=== PATIENT | female | born 1945 | race Caucasian/White ===

== ENCOUNTER 2018-02-04 20:22 | Inpatient (IN) | payer MEDICARE, OTHER ==
[~2018-02-04] VITALS: Ht 162.6 cm; Wt 85.8 kg
[~2018-02-04 20:22] MED LIST: AMLO5 PO; ASPI81CH; Aspir 8181 MG PO; Coq-10100 MG PO; ENOX40I SC; FISH OIL OMEGA1 EAC2 PO; GLUCOSAMINE CH1 EAC3 PO; Hair, Skin & N1 EACH PO; LOSA50 PO; Lovastatin20 MG PO; Metoprolol-Hct1 EAC1 PO; OTC SLEEP AID PO; OXYACE5T PO; PRED5 PO; ZINC15 PO
[2018-02-04 20:51] LABS: BASOPHILS ABSOLUTE AUTO 0.04 K/mm3 (0.00-0.23); BASOPHILS PERCENT AUTO 1 % (0-2); EOSINOPHILS ABSOLUTE AUTO 0.12 K/mm3 (0.00-0.68); EOSINOPHILS PERCENT AUTO 2 % (0-6); Hematocrit 35.6 % (33.0-51.0); Hemoglobin 12.3 g/dL (11.5-16.0); IMMATURE GRAN ABSOLUTE AUTO 0.03 K/mm3 (0.00-0.10); IMMATURE GRAN PERCENT AUTO 1 % (0-1); LYMPHOCYTES PERCENT AUTO 38 % (21-46); MONOCYTES PERCENT AUTO 10 % (4-13); Mean Corpuscular HGB 30.1 pg (26.0-34.0); Mean Corpuscular HGB Conc 34.6 g/dL (31.5-36.5); Mean Corpuscular Volume 87 fL (80-100); NEUTROPHILS ABSOLUTE AUTO 2.56 K/mm3 (1.96-9.15); NEUTROPHILS PERCENT AUTO 49 % (41-73); RDW Coefficient Variation 13.1 % (11.7-14.2); RDW Standard Deviation 41.1 fL (35.1-46.3); Red Blood Cell Count 4.09 M/mm3 (3.80-5.20); White Blood Cell Count 5.25 K/mm3 (4.00-11.30)
[2018-02-04 20:54] LABS: Platelet Count 0 K/mm3 (150-400)
[2018-02-04 21:18] LABS: Alanine Aminotransfer (ALT/SGP 56 U/L (12-78); Albumin, Blood 3.8 g/dL (3.4-5.0); Albumin/Globulin Ratio 1.1 (0.8-1.8); Alk Phos 71 U/L (50-136); Anion Gap 9 mmol/L (6-16); Aspartate Aminotrans (AST/SGOT 33 U/L (12-37); Bilirubin, Total 0.5 mg/dL (0.1-1.0); Blood Urea Nitrogen 16 mg/dL (8-24); Bun/Creatinine Ratio 19.4 (12.0-20.0); CO2, Blood 24 mmol/L (21-32); Calcium, Blood 8.8 mg/dL (8.5-10.1); Chloride, Blood 108 mmol/L (98-108); Creatinine, Blood 0.83 mg/dL (0.40-1.00); Globulin, Blood 3.6 g/dL (2.2-4.0); Glomerular Filtration Rate >60 (60-); Glucose, Blood 137 mg/dL (70-99); Potassium, Blood 4.1 mmol/L (3.5-5.5); Sodium, Blood 141 mmol/L (136-145); Total Protein, Blood 7.4 g/dL (6.4-8.2)
[2018-02-04 22:26] LABS: International Normalized Ratio 1.02; Prothrombin Time Results 10.6 Sec (9.7-11.5)
[2018-02-04 23:06] LABS: Bilirubin, Urine Neg (Neg); Blood, Urine 5+ (Neg); Glucose Qualitative, Urine Neg (Neg); Ketones, Urine Neg (Neg); Leukocyte Esterase, Urine Neg (Neg); Nitrite, Urine Neg (Neg); Protein, Urine Neg (Neg); Source, Urine Clean Catch; Urobilinogen, Urine NORM (Normal)
[2018-02-04 23:07] LABS: Appearance, Urine Clear (Clear); Color, Urine Yellow (P-Yellow)
[2018-02-04 23:12] LABS: Amorphous Light (0-Heavy); Bacteria Not Seen /hpf; Squamous Epithelial Cells Not Seen /hpf (Few); White Blood Cells, Urine Not Seen /hpf (0-5)
[2018-02-05 06:55] LABS: BASOPHILS ABSOLUTE AUTO 0.02 K/mm3 (0.00-0.23); BASOPHILS PERCENT AUTO 0 % (0-2); EOSINOPHILS PERCENT AUTO 0 % (0-6); Hematocrit 35.9 % (33.0-51.0); Hemoglobin 12.5 g/dL (11.5-16.0); IMMATURE GRAN ABSOLUTE AUTO 0.07 K/mm3 (0.00-0.10); IMMATURE GRAN PERCENT AUTO 1 % (0-1); LYMPHOCYTES ABSOLUTE AUTO 1.18 K/mm3 (0.84-5.20); LYMPHOCYTES PERCENT AUTO 22 % (21-46); MONOCYTES PERCENT AUTO 2 % (4-13); Mean Corpuscular HGB Conc 34.8 g/dL (31.5-36.5); Mean Corpuscular Volume 86 fL (80-100); NEUTROPHILS ABSOLUTE AUTO 4.05 K/mm3 (1.96-9.15); NEUTROPHILS PERCENT AUTO 75 % (41-73); RDW Coefficient Variation 12.8 % (11.7-14.2); Red Blood Cell Count 4.16 M/mm3 (3.80-5.20); White Blood Cell Count 5.42 K/mm3 (4.00-11.30)
[2018-02-05 07:03] LABS: Anion Gap 9 mmol/L (6-16); Blood Urea Nitrogen 16 mg/dL (8-24); CO2, Blood 21 mmol/L (21-32); Calcium, Blood 8.8 mg/dL (8.5-10.1); Chloride, Blood 109 mmol/L (98-108); Creatinine, Blood 0.67 mg/dL (0.40-1.00); Glomerular Filtration Rate >60 (60-); Glucose, Blood 226 mg/dL (70-99); Potassium, Blood 3.9 mmol/L (3.5-5.5); Sodium, Blood 139 mmol/L (136-145)
[2018-02-05 07:51] LABS: Platelet Count 1 K/mm3 (150-400)
[2018-02-06 05:16] LABS: BASOPHILS ABSOLUTE AUTO 0.01 K/mm3 (0.00-0.23); BASOPHILS PERCENT AUTO 0 % (0-2); EOSINOPHILS PERCENT AUTO 0 % (0-6); Hematocrit 33.5 % (33.0-51.0); Hemoglobin 11.7 g/dL (11.5-16.0); IMMATURE GRAN ABSOLUTE AUTO 0.11 K/mm3 (0.00-0.10); IMMATURE GRAN PERCENT AUTO 1 % (0-1); LYMPHOCYTES ABSOLUTE AUTO 1.78 K/mm3 (0.84-5.20); LYMPHOCYTES PERCENT AUTO 11 % (21-46); MONOCYTES ABSOLUTE AUTO 0.73 K/mm3 (0.16-1.47); MONOCYTES PERCENT AUTO 5 % (4-13); Mean Corpuscular HGB 29.9 pg (26.0-34.0); Mean Corpuscular HGB Conc 34.9 g/dL (31.5-36.5); Mean Corpuscular Volume 86 fL (80-100); NEUTROPHILS ABSOLUTE AUTO 13.05 K/mm3 (1.96-9.15); NEUTROPHILS PERCENT AUTO 83 % (41-73); RDW Coefficient Variation 13.2 % (11.7-14.2); RDW Standard Deviation 40.6 fL (35.1-46.3); Red Blood Cell Count 3.91 M/mm3 (3.80-5.20); White Blood Cell Count 15.68 K/mm3 (4.00-11.30)
[2018-02-06 05:34] LABS: Platelet Count 1 K/mm3 (150-400)
[2018-02-06 16:07] LABS: Free Thyroxine 1.02 ng/dL (0.70-1.60); Thyroid Stimulating Hormone 1.41 uIU/mL (0.360-4.800)
[2018-02-07 05:21] LABS: BASOPHILS ABSOLUTE AUTO 0.01 K/mm3 (0.00-0.23); BASOPHILS PERCENT AUTO 0 % (0-2); EOSINOPHILS PERCENT AUTO 0 % (0-6); Hematocrit 33.6 % (33.0-51.0); Hemoglobin 11.6 g/dL (11.5-16.0); IMMATURE GRAN ABSOLUTE AUTO 0.15 K/mm3 (0.00-0.10); IMMATURE GRAN PERCENT AUTO 1 % (0-1); LYMPHOCYTES PERCENT AUTO 14 % (21-46); MONOCYTES ABSOLUTE AUTO 0.51 K/mm3 (0.16-1.47); MONOCYTES PERCENT AUTO 4 % (4-13); Mean Corpuscular HGB 29.9 pg (26.0-34.0); Mean Corpuscular HGB Conc 34.5 g/dL (31.5-36.5); Mean Corpuscular Volume 87 fL (80-100); NEUTROPHILS ABSOLUTE AUTO 11.75 K/mm3 (1.96-9.15); NEUTROPHILS PERCENT AUTO 82 % (41-73); RDW Coefficient Variation 13.2 % (11.7-14.2); RDW Standard Deviation 41.1 fL (35.1-46.3); Red Blood Cell Count 3.88 M/mm3 (3.80-5.20); White Blood Cell Count 14.42 K/mm3 (4.00-11.30)
[2018-02-07 05:48] LABS: Mean Platelet Volume 15.1 fL (9.1-12.4)
[2018-02-07 05:50] LABS: Platelet Count 1 K/mm3 (150-400)
[2018-02-07 06:39] LABS: HCV Non Reactive (NR)
[2018-02-08 08:14] LABS: BASOPHILS ABSOLUTE AUTO 0.01 K/mm3 (0.00-0.23); BASOPHILS PERCENT AUTO 0 % (0-2); EOSINOPHILS PERCENT AUTO 0 % (0-6); Hematocrit 36.2 % (33.0-51.0); Hemoglobin 12.6 g/dL (11.5-16.0); IMMATURE GRAN PERCENT AUTO 2 % (0-1); LYMPHOCYTES ABSOLUTE AUTO 1.43 K/mm3 (0.84-5.20); LYMPHOCYTES PERCENT AUTO 13 % (21-46); MONOCYTES PERCENT AUTO 5 % (4-13); Mean Corpuscular HGB 30.4 pg (26.0-34.0); Mean Corpuscular HGB Conc 34.8 g/dL (31.5-36.5); Mean Corpuscular Volume 87 fL (80-100); NEUTROPHILS ABSOLUTE AUTO 8.97 K/mm3 (1.96-9.15); NEUTROPHILS PERCENT AUTO 80 % (41-73); RDW Standard Deviation 40.8 fL (35.1-46.3); Red Blood Cell Count 4.15 M/mm3 (3.80-5.20); White Blood Cell Count 11.21 K/mm3 (4.00-11.30)
[2018-02-08 08:24] LABS: Platelet Count 6 K/mm3 (150-400)
[2018-02-08] MEDS ORDERED: HYDCHL25 PO (10:24)
[2018-02-08] MEDS ORDERED: PRED20 PO (10:25)
== END 2018-02-08 11:55 | disposition home or self-care (01) | DRG 813 ==
LOC: ER 20:22 → MEDS 20:23
PROVIDERS: Emergency Medicine; Hospitalist; Internal Medicine; Internal Medicine Hematology & Oncology
DX: D69.3 Immune thrombocytopenic purpura (principal); E78.5 Hyperlipidemia, unspecified; G43.909 Migraine, unspecified, not intractable, without status migrainosus; I10 Essential (primary) hypertension; M19.90 Unspecified osteoarthritis, unspecified site; R04.0 Epistaxis; Z79.82 Long term (current) use of aspirin; Z85.828 Personal history of other malignant neoplasm of skin; Z53.1 Procedure and treatment not carried out because of patient's decision for reasons of belief and group pressure; Z79.899 Other long term (current) drug therapy; Z96.651 Presence of right artificial knee joint
CPT/HCPCS: 36415; 80048; 80053; 81001; 82947; 83036; 84439; 84443; 85025; 85610; 85730; 86803; 87340; 96365; 96413; 96415; 99285; J0360; J1100; J1200; J2405; J2930; J7030; J7040; J9310

== ENCOUNTER → 2018-03-18 | Outpatient (CLI) | payer MEDICARE, OTHER ==
[~2018-03-18] MED LIST changes: +HYDCHL25 PO; +PRED20 PO
[2018-03-18 17:16] LABS: Alanine Aminotransfer (ALT/SGP 42 U/L (12-78); Albumin, Blood 3.3 g/dL (3.4-5.0); Albumin/Globulin Ratio 1.1 (0.8-1.8); Alk Phos 57 U/L (50-136); Anion Gap 11 mmol/L (6-16); Aspartate Aminotrans (AST/SGOT 42 U/L (12-37); Bilirubin, Total 0.8 mg/dL (0.1-1.0); Blood Urea Nitrogen 15 mg/dL (8-24); Bun/Creatinine Ratio 20.9 (12.0-20.0); CO2, Blood 24 mmol/L (21-32); Calcium, Blood 9.2 mg/dL (8.5-10.1); Chloride, Blood 96 mmol/L (98-108); Creatinine, Blood 0.72 mg/dL (0.40-1.00); Glomerular Filtration Rate >60 (60-); Glucose, Blood 201 mg/dL (70-99); Potassium, Blood 4.2 mmol/L (3.5-5.5); Sodium, Blood 131 mmol/L (136-145); Total Protein, Blood 6.3 g/dL (6.4-8.2)
== END | disposition home or self-care (01) ==
LOC: LAB SHORT 16:24 → LAB 16:24
PROVIDERS: Internal Medicine Hematology & Oncology
DX: G60.9 Hereditary and idiopathic neuropathy, unspecified (principal); D69.3 Immune thrombocytopenic purpura; R06.02 Shortness of breath
CPT/HCPCS: 80053; 82607; 82728; 82746; 83540; 83550

== ENCOUNTER → 2018-03-28 | Outpatient (CLI) | payer MEDICARE, OTHER ==
[2018-03-28 10:38] LABS: Adenovirus F 40/41 Not Detected (NOT DETECT); Astrovirus Not Detected (NOT DETECT); Campylobacter Sp Not Detected (NOT DETECT); Cryptosporidium Not Detected (NOT DETECT); Cyclospora Cayetanensis Not Detected (NOT DETECT); E. Coli O157 Not Detected (NOT DETECT); Entamoeba Histolytica Not Detected (NOT DETECT); Enteroaggregative E. coli-EAEC Not Detected (NOT DETECT); Enteropathogenic E. coli-EPEC Not Detected (NOT DETECT); Enterotoxigenic E. coli-ETEC Not Detected (NOT DETECT); Giardia Lamblia Not Detected (NOT DETECT); Norovirus GI/GII Not Detected (NOT DETECT); Plesiomonas Shigelloides Not Detected (NOT DETECT); Rotavirus A Not Detected (NOT DETECT); Salmonella Sp Not Detected (NOT DETECT); Sapovirus Not Detected (NOT DETECT); Shiga Toxin-prod E. coli-STEC Not Detected (NOT DETECT); Shigella/Enteroin E. coli-EIEC Not Detected (NOT DETECT); Vibrio Cholerae Not Detected (NOT DETECT); Vibrio Sp Not Detected (NOT DETECT); Yersinia Enterocolitica Not Detected (NOT DETECT)
== END | disposition home or self-care (01) ==
LOC: LAB 07:30 → LAB SHORT 07:30
PROVIDERS: Internal Medicine Hematology & Oncology
DX: D69.3 Immune thrombocytopenic purpura (principal); R19.7 Diarrhea, unspecified
CPT/HCPCS: 87507

== ENCOUNTER → 2018-05-28 | Outpatient (CLI) | payer MEDICARE, OTHER | END | disposition home or self-care (01) | LOC: PLD 08:14 → LAB SHORT 08:14 | DX: L57.0 Actinic keratosis (principal) | CPT/HCPCS: 88305 ==

== ENCOUNTER 2020-08-10 10:53 | Day surgery (SDC) | payer MEDICARE, OTHER ==
[~2020-08-10] VITALS: Ht 167.6 cm; Wt 88.0 kg
[~2020-08-10 10:53] MED LIST changes: +DONE10 PO; +MELO7.5 PO; +METO25 PO; +SLEEP AID PO
--- NOTE | 2020-08-10 11:17 | NUR ---
Ambulatory in Day Surgery History, Chart, Medications and Allergies reviewed before start of procedure.Lungs clear T/O to Auscultation. Patient confirms NPO status and agrees with scheduled surgery.
--- NOTE | 2020-08-10 11:33 | NUR ---
TOOK OVER PATIENT CARE AFTER REPORT WAS RECEIVED.
--- NOTE | 2020-08-10 12:08 | NUR ---
TOOK C ARE BACK OVER NO CHANGE.
--- NOTE | 2020-08-10 13:12 | NUR ---
1300 UP TO BATHROOM AT THIS TIME
--- NOTE | 2020-08-10 23:46 | NUR ---
FIRST AMBULATION, SYNCOPAL EPISODE PT AMBULATED FOR FIRST TIME AFTER SURGERY AROUND 2244, USING FWW AND GAIT BELT, UP TO BATHROOM. WHEN ATTEMPTING TO GET UP FROM USING TOILET PT HAD SYNCOPAL EPISODE. THIS RN AND GLYCERIN SUPERVISOR PRESENT. ASSISTED PT TO SIT BACK DOWN ON TOILET. CALLED SURGICAL FLOOR STAFF TO ASSIST. AFTER A FEW SECONDS PT WAS ABLE TO RESPOND TO NAME, MAKE EYE CONTACT, AND VERBALLY COMMUNICATE. PT ASSISTED BACK TO BED. BP LOWER THAN BEFORE AMBULATING; SEE VS HX. PT DENYING DIZZINESS OR LIGHTHEADEDNESS SINCE BACK IN BED. WCTM.
[2020-08-11 04:12] LABS: BASOPHILS ABSOLUTE AUTO 0.01 K/mm3 (0.00-0.23); BASOPHILS PERCENT AUTO 0 % (0-2); EOSINOPHILS PERCENT AUTO 0 % (0-6); Hematocrit 29.5 % (33.0-51.0); Hemoglobin 9.9 g/dL (11.5-16.0); IMMATURE GRAN ABSOLUTE AUTO 0.08 K/mm3 (0.00-0.10); IMMATURE GRAN PERCENT AUTO 1 % (0-1); LYMPHOCYTES ABSOLUTE AUTO 1.69 K/mm3 (0.84-5.20); LYMPHOCYTES PERCENT AUTO 13 % (21-46); MONOCYTES ABSOLUTE AUTO 0.42 K/mm3 (0.16-1.47); MONOCYTES PERCENT AUTO 3 % (4-13); Mean Corpuscular HGB 32.1 pg (26.0-34.0); Mean Corpuscular HGB Conc 33.6 g/dL (31.5-36.5); Mean Corpuscular Volume 96 fL (80-100); Mean Platelet Volume 11.2 fL (9.1-12.4); NEUTROPHILS ABSOLUTE AUTO 10.43 K/mm3 (1.96-9.15); NEUTROPHILS PERCENT AUTO 83 % (41-73); Platelet Count 153 K/mm3 (150-400); RDW Coefficient Variation 12.5 % (11.7-14.2); RDW Standard Deviation 43.3 fL (35.1-46.3); Red Blood Cell Count 3.08 M/mm3 (3.80-5.20); White Blood Cell Count 12.63 K/mm3 (4.00-11.30)
[2020-08-11 04:27] LABS: Anion Gap 8 mmol/L (6-16); Blood Urea Nitrogen 27 mg/dL (8-24); Bun/Creatinine Ratio 33.3 (12.0-20.0); CO2, Blood 24 mmol/L (21-32); Calcium, Blood 7.9 mg/dL (8.5-10.1); Chloride, Blood 104 mmol/L (98-108); Creatinine, Blood 0.81 mg/dL (0.40-1.00); Glomerular Filtration Rate >60 (60-); Glucose, Blood 173 mg/dL (70-99); Magnesium, Blood 2.1 mg/dL (1.6-2.4); Potassium, Blood 5.2 mmol/L (3.5-5.5); Sodium, Blood 136 mmol/L (136-145)
--- NOTE | 2020-08-11 06:38 | NUR ---
SHIFT SUMMARY PT A/O X4. 1X ASSIST TO BATHROOM WITH FWW AND GAIT BELT. PT HAD SYNCOPAL EPISODE DURING HER FIRST TIME UP TO BATHROOM. SEE PREVIOUS NOTE. PT ALSO UNABLE TO VOID AND WAS STRAGHT CATH'D AT 0545 FOR 780ML'S. PAIN MANAGED WITH TYLENOL AND TORADOL PER ORDERS. POLAR PACK IN PLACE DURING THE NIGHT. TOLERATING PO INTAKE.
--- NOTE | 2020-08-11 08:49 | NUR ---
DR PAVON HERE THIS AM AND PLACED NEW DRESSING, DISCUSSED PT'S STATUS AND EVENTS LAST NIGHT/EARLY THIS AM PER HS RN.
--- NOTE | 2020-08-11 09:46 | NUR ---
PT ORTHOSTATIC VS WNL. PT DID NOT BECOME SYMPTOMATIC. PT ATTEMPTED TO VOID WITH NO SUCCESS AT THIS TIME. PT TO WORK WITH THERAPY, THEN WILL RETAKE VS AND GIVE MEDICATIONS IF VS REMAIN STABLE AND PT REMAINS ASSYMPTOMATIC. DISCUSSED PT'S EVENTS LAST NIGHT WITH THERAPY. FAMILY HERE.
[2020-08-11] MEDS ORDERED: ASPI81CH PO (15:11)
[2020-08-11] MEDS ORDERED: DOCU100 PO (15:12)
[2020-08-11] MEDS ORDERED: OXYC5 PO (15:13)
[2020-08-11] MEDS ORDERED: PROM25 PO (15:14)
--- NOTE | 2020-08-11 15:45 | NUR ---
DISCHARGE: PT EATING AND DRINKING. PT BEEN VOIDING MUCH BETTER THIS AFTERNOON. PT REPORTS PAIN DOING MUCH BETTER. PT PASSING GAS. PT BEEN CLEARED BY OT/PT TO GO HOME. PT/FAMILY REPORTS UNDERSTANDING OF DISCHARGE INSTRUCTIONS INCLUDING MEDICATIONS AND ICE MACHINE. PT REPORTS HAVING MEDICATIONS, WALKER AT HOME. PT SENT WITH BELONGINGS, ICE MACHINE, PAPERWORK. FAMILY GIVING PT RIDE HOME. IV BEEN OUT WNL, NO OTHER IV'S IN PLACE.
== END 2020-08-11 15:54 | disposition home or self-care (01) ==
LOC: ORSCMMR 10:53 → ORD 15:15 → ORSCMMR 15:15 → SURS 17:55 → ORSCMMR 08-11 15:54
PROVIDERS: Orthopaedic Surgery
PROC: 0SRB0JA Replacement of Left Hip Joint with Synthetic Substitute, Uncemented, Open Approach (ICD-10-PCS; principal; 2020-08-10 15:15)
PROC: 8E0YXBZ Computer Assisted Procedure of Lower Extremity (ICD-10-PCS; principal; 2020-08-10 15:15)
DX: M16.12 Unilateral primary osteoarthritis, left hip (principal); I10 Essential (primary) hypertension; E78.5 Hyperlipidemia, unspecified; Z79.899 Other long term (current) drug therapy
CPT/HCPCS: 36415; 72170; 80048; 83735; 85025; 88300; 97110; 97116-CQ; 97161; 97165; 97535; A9270; A9270-GY; C1713; C1776; J0171; J0690; J0735; J1100; J1885; J2250; J2370; J2405; J2704; J2795; J3010; J3370; J7120

== ENCOUNTER 2020-11-04 11:20 | Day surgery (SDC) | payer MEDICARE, OTHER ==
[~2020-11-04] VITALS: Ht 162.6 cm; Wt 91.2 kg
[~2020-11-04 11:20] MED LIST changes: +ASPI81CH PO; +DOCU100 PO; +OXYC5 PO; +PROM25 PO
[2020-11-04 18:12] LABS: BODY FLUID RBC 0.308 M/mm3 (0-0); RBC Count, Synovial Fluid 308000 /mm3 (0-0); WBC Count, Synovial Fluid 842 /mm3 (0-180)
[2020-11-04 18:14] LABS: BODY FLUID RBC 0.645 M/mm3 (0-0); RBC Count, Synovial Fluid 645000 /mm3 (0-0); WBC Count, Synovial Fluid 1541 /mm3 (0-180)
[2020-11-04 18:52] LABS: Color, Synovial Fluid Red (None-P Yel); Lymphs, Synovial Fluid 69 % (0-15); Monocytes/Macrophages, Synovia 7 % (0-65); Neutrophils, Synovial Fluid 24 % (0-24)
[2020-11-04 18:53] LABS: Appearance, Synovial Fluid Bloody (Clear)
[2020-11-04 18:54] LABS: Lymphs, Synovial Fluid 76 % (0-15); Monocytes/Macrophages, Synovia 9 % (0-65); Neutrophils, Synovial Fluid 15 % (0-24)
[2020-11-04 18:55] LABS: Appearance, Synovial Fluid Bloody (Clear); Color, Synovial Fluid Red (None-P Yel)
--- NOTE | 2020-11-04 21:23 | NUR ---
ADMISSION HX AND INITIAL ASSESSMENT DONE UNDER DAY SURGERY SECTION
--- NOTE | 2020-11-05 04:48 | NUR ---
SHIFT SUMMARY POD1 L HIP I&D W/ REVISION, A/O X4, VSS, TOLERATING PO, VOIDING WELL, AMBULATES W/ 1 PERSON SBA, DENIES PAIN, HEMOVAC DRAINING WELL W/ SMALL AMOUNT OF SANGUINEOUS DRAINGAGE, DENIES FLATUS BUT ONLY OUT OF PACU SINCE START OF SHIFT. CALL LIGHT IN REACH, BED IN LOW POSITION, WILL CONTINUE TO MONITOR AND REPORT TO ONCOMING DAY RN.
[2020-11-05 04:50] LABS: BASOPHILS ABSOLUTE AUTO 0.03 K/mm3 (0.00-0.23); BASOPHILS PERCENT AUTO 0 % (0-2); EOSINOPHILS ABSOLUTE AUTO 0.01 K/mm3 (0.00-0.68); EOSINOPHILS PERCENT AUTO 0 % (0-6); Hematocrit 32.2 % (33.0-51.0); Hemoglobin 10.4 g/dL (11.5-16.0); IMMATURE GRAN ABSOLUTE AUTO 0.02 K/mm3 (0.00-0.10); IMMATURE GRAN PERCENT AUTO 0 % (0-1); LYMPHOCYTES ABSOLUTE AUTO 1.87 K/mm3 (0.84-5.20); LYMPHOCYTES PERCENT AUTO 24 % (21-46); MONOCYTES ABSOLUTE AUTO 0.47 K/mm3 (0.16-1.47); MONOCYTES PERCENT AUTO 6 % (4-13); Mean Corpuscular HGB 29.3 pg (26.0-34.0); Mean Corpuscular HGB Conc 32.3 g/dL (31.5-36.5); Mean Corpuscular Volume 91 fL (80-100); Mean Platelet Volume 11.1 fL (9.1-12.4); NEUTROPHILS ABSOLUTE AUTO 5.54 K/mm3 (1.96-9.15); NEUTROPHILS PERCENT AUTO 70 % (41-73); Platelet Count 122 K/mm3 (150-400); RDW Coefficient Variation 13.5 % (11.7-14.2); RDW Standard Deviation 44.9 fL (35.1-46.3); Red Blood Cell Count 3.55 M/mm3 (3.80-5.20); White Blood Cell Count 7.94 K/mm3 (4.00-11.30)
[2020-11-05 05:11] LABS: Anion Gap 6 mmol/L (6-16); Blood Urea Nitrogen 20 mg/dL (8-24); Bun/Creatinine Ratio 27.6 (12.0-20.0); CO2, Blood 26 mmol/L (21-32); Calcium, Blood 8.1 mg/dL (8.5-10.1); Chloride, Blood 107 mmol/L (98-108); Creatinine, Blood 0.72 mg/dL (0.40-1.00); Glomerular Filtration Rate >60 (60-); Glucose, Blood 134 mg/dL (70-99); Magnesium, Blood 2.1 mg/dL (1.6-2.4); Potassium, Blood 4.6 mmol/L (3.5-5.5); Sodium, Blood 139 mmol/L (136-145)
--- NOTE | 2020-11-05 18:41 | NUR ---
SHIFT SUMMARY PT IS POD#1 FROM A L HIP REVISION. PAIN HAS BEEN MANAGED WITH PO PAIN MEDICATION. PICC LINE PLACED TODAY. POSSIBLE HOME TOMORROW. VSS. WILL MONITOR UNTIL REPORT TO ONCOMING RN.
--- NOTE | 2020-11-06 05:35 | NUR ---
SHIFT SUMMARY POD2 L HIP I&D W/ REVISION, A/O X4, VSS, INDEPENDENT IN ROOM BUT STILL USES WALKER FOR SUPPORT/SAFETY, TOLERATING PO, VOIDING WELL, NO BM SINCE SURGERY, PRUNE JUICE GIVEN AT BEDTIME IN ADDITION TO ORDERED STOOL SOFTENERS, PAIN WELL CONTROLLED W/ MINIMAL PAIN MEDICATION USE, HEMOVAC PUTTING OUT SMALL AMOUNT OF SS DRAINAGE T/O SHIFT. PICC LINE FLUSHES WELL AND TO BE LEFT IN PLACE FOR DAILY ABX INFUSIONS IN INFUSION CLINIC AFTER DISCHARGE. CALL LIGHT IN REACH, WILL CONTINUE TO MONITOR AND REPORT TO ONCOMING DAY RN.
[2020-11-06] MEDS ORDERED: Percocet 5-3251 EACH PO (11:28)
[2020-11-06] MEDS ORDERED: Aspir 8181 MG PO (11:59)
[2020-11-06] MEDS ORDERED: CEFTRIAXONE2 G1 IV (12:00)
[2020-11-06] MEDS ORDERED: VANCOMYCIN HCL1 G1 IV (12:00)
--- NOTE | 2020-11-06 13:12 | NUR ---
DISCHARGE PT PROVIDED WITH WRITTEN AND VERBAL DISCHARGE INSTRUCTIONS, SHE REPORTED UNDERSTANDING. PT PROVIDED WITH PRESCRIPTIONS AND EDUCATED TO BRING THEM TO THE [facility] TOMORROW. PT ESCORTED OUT IN W/C, PT REQUESTED TO WAIT FOR HER IN THE LOBBY. VSS AND PAIN MANAGED AT TIME OF DISCHARGE.
== END 2020-11-06 13:00 | disposition home or self-care (01) ==
LOC: ORSCMMR 11:20 → ORD 11:20 → ORSCMMR 11:21 → ORD 14:15 → SURS 19:00 → ORD 11-06 13:00
PROVIDERS: Orthopaedic Surgery
PROC: 0JBM0ZZ Excision of Left Upper Leg Subcutaneous Tissue and Fascia, Open Approach (ICD-10-PCS; principal; 2020-11-04 14:15)
PROC: 0SRB0JZ Replacement of Left Hip Joint with Synthetic Substitute, Open Approach (ICD-10-PCS; principal; 2020-11-04 14:15)
PROC: 0SPB0JZ Removal of Synthetic Substitute from Left Hip Joint, Open Approach (ICD-10-PCS; principal; 2020-11-04 14:15)
DX: T84.84XA Pain due to internal orthopedic prosthetic devices, implants and grafts, initial encounter (principal); L53.8 Other specified erythematous conditions; Z96.642 Presence of left artificial hip joint; I10 Essential (primary) hypertension; Z79.899 Other long term (current) drug therapy; Z20.822 Contact with and (suspected) exposure to COVID-19
CPT/HCPCS: 0241U; 36415; 36569; 72170; 80048; 83735; 85025; 87070; 87071; 87075; 87205; 87801; 88305; 89051; 97110; 97116; 97161; A9270; C1713; C1751; C1776; J0171; J0690; J0696; J0735; J1885; J2250; J2405; J2795; J3010; J3370; J7050; J7120

== ENCOUNTER 2020-11-07 07:11 | Day surgery (SDC) | payer MEDICARE, OTHER ==
[~2020-11-07 07:11] MED LIST changes: +CEFTRIAXONE2 G1 IV; +Percocet 5-3251 EACH PO; +VANCOMYCIN HCL1 G1 IV
[2020-11-07 09:36] LABS: Creatinine, Blood 0.71 mg/dL (0.40-1.00); Vancomycin, Trough 6.7 ug/mL (5.0-10.0)
== END 2020-11-07 23:12 | disposition home or self-care (01) ==
LOC: ATC 07:11
PROVIDERS: Orthopaedic Surgery
DX: T84.84XA Pain due to internal orthopedic prosthetic devices, implants and grafts, initial encounter (principal); T84.89XA Other specified complication of internal orthopedic prosthetic devices, implants and grafts, initial encounter; E78.00 Pure hypercholesterolemia, unspecified; G43.909 Migraine, unspecified, not intractable, without status migrainosus; Z79.2 Long term (current) use of antibiotics; Z79.899 Other long term (current) drug therapy; Z96.642 Presence of left artificial hip joint; Y83.1 Surgical operation with implant of artificial internal device as the cause of abnormal reaction of the patient, or of later complication, without mention of misadventure at the time of the procedure
CPT/HCPCS: 80202; 82565; 96365; 96367; J0696; J3370; J7050

== ENCOUNTER 2020-11-08 00:22 | Day surgery (SDC) | payer MEDICARE, OTHER | END 2020-11-08 15:40 | disposition home or self-care (01) | LOC: ATC 00:22 | DX: T84.84XA Pain due to internal orthopedic prosthetic devices, implants and grafts, initial encounter (principal); T84.89XA Other specified complication of internal orthopedic prosthetic devices, implants and grafts, initial encounter; E78.00 Pure hypercholesterolemia, unspecified; G43.909 Migraine, unspecified, not intractable, without status migrainosus; Z79.2 Long term (current) use of antibiotics; Z79.899 Other long term (current) drug therapy; Z96.642 Presence of left artificial hip joint; Z79.1 Long term (current) use of non-steroidal anti-inflammatories (NSAID); Z79.82 Long term (current) use of aspirin; Y83.1 Surgical operation with implant of artificial internal device as the cause of abnormal reaction of the patient, or of later complication, without mention of misadventure at the time of the procedure | CPT/HCPCS: 96365; 96367; J0696; J3370; J7050 ==

== ENCOUNTER 2020-11-09 00:14 | Day surgery (SDC) | payer MEDICARE, OTHER | END 2020-11-09 16:16 | disposition home or self-care (01) | LOC: ATC 00:14 | DX: T81.89XA Other complications of procedures, not elsewhere classified, initial encounter (principal); L53.9 Erythematous condition, unspecified; G89.18 Other acute postprocedural pain; E78.00 Pure hypercholesterolemia, unspecified; Y83.8 Other surgical procedures as the cause of abnormal reaction of the patient, or of later complication, without mention of misadventure at the time of the procedure; Z96.642 Presence of left artificial hip joint | CPT/HCPCS: 96365; 96366; 96367; J0696; J3370; J7050 ==

== ENCOUNTER 2020-11-10 00:09 | Day surgery (SDC) | payer MEDICARE, OTHER ==
[2020-11-10 14:44] LABS: Creatinine, Blood 0.61 mg/dL (0.40-1.00); Vancomycin, Trough 7.2 ug/mL (5.0-10.0)
== END 2020-11-10 16:26 | disposition home or self-care (01) ==
LOC: ATC 00:09
PROVIDERS: Orthopaedic Surgery
DX: T84.84XA Pain due to internal orthopedic prosthetic devices, implants and grafts, initial encounter (principal); T84.89XA Other specified complication of internal orthopedic prosthetic devices, implants and grafts, initial encounter; E78.00 Pure hypercholesterolemia, unspecified; G43.909 Migraine, unspecified, not intractable, without status migrainosus; Z79.2 Long term (current) use of antibiotics; Z85.828 Personal history of other malignant neoplasm of skin; Z79.899 Other long term (current) drug therapy; Z96.642 Presence of left artificial hip joint; Y83.1 Surgical operation with implant of artificial internal device as the cause of abnormal reaction of the patient, or of later complication, without mention of misadventure at the time of the procedure
CPT/HCPCS: 80202; 82565; 96365; 96366; 96367; J0696; J3370; J7050

== ENCOUNTER 2020-11-11 01:53 | Day surgery (SDC) | payer MEDICARE, OTHER ==
[2020-11-12] MEDS ORDERED: PROBIOTIC1 EA13 PO (14:41)
== END 2020-11-11 17:15 | disposition home or self-care (01) ==
LOC: ATC 01:53
DX: M16.12 Unilateral primary osteoarthritis, left hip (principal); G43.909 Migraine, unspecified, not intractable, without status migrainosus; Z79.899 Other long term (current) drug therapy
CPT/HCPCS: 96365; 96367; J0696; J3370; J7050

== ENCOUNTER 2020-11-12 00:27 | Day surgery (SDC) | payer MEDICARE, OTHER ==
[2020-11-12] MEDS ORDERED: PROBIOTIC1 EA13 PO (14:41)
== END 2020-11-12 15:43 | disposition home or self-care (01) ==
LOC: ATC 00:27
DX: T84.84XA Pain due to internal orthopedic prosthetic devices, implants and grafts, initial encounter (principal); T84.89XA Other specified complication of internal orthopedic prosthetic devices, implants and grafts, initial encounter; E78.00 Pure hypercholesterolemia, unspecified; G43.909 Migraine, unspecified, not intractable, without status migrainosus; Z79.2 Long term (current) use of antibiotics; Z79.1 Long term (current) use of non-steroidal anti-inflammatories (NSAID); Z79.899 Other long term (current) drug therapy; Z96.651 Presence of right artificial knee joint; Z96.642 Presence of left artificial hip joint; Y83.1 Surgical operation with implant of artificial internal device as the cause of abnormal reaction of the patient, or of later complication, without mention of misadventure at the time of the procedure
CPT/HCPCS: 96365; 96367; J0696; J3370; J7050

== ENCOUNTER 2020-11-13 01:24 | Day surgery (SDC) | payer MEDICARE, OTHER ==
[~2020-11-13 01:24] MED LIST changes: +PROBIOTIC1 EA13 PO
[2020-11-13 14:11] LABS: Vancomycin, Trough 8.8 ug/mL (5.0-10.0)
== END 2020-11-13 15:58 | disposition home or self-care (01) ==
LOC: ATC 01:24
PROVIDERS: Orthopaedic Surgery
DX: T84.84XA Pain due to internal orthopedic prosthetic devices, implants and grafts, initial encounter (principal); T84.89XA Other specified complication of internal orthopedic prosthetic devices, implants and grafts, initial encounter; E78.00 Pure hypercholesterolemia, unspecified; G43.909 Migraine, unspecified, not intractable, without status migrainosus; Z79.2 Long term (current) use of antibiotics; Z79.1 Long term (current) use of non-steroidal anti-inflammatories (NSAID); Z79.899 Other long term (current) drug therapy; Z96.642 Presence of left artificial hip joint; Z96.651 Presence of right artificial knee joint; Y83.1 Surgical operation with implant of artificial internal device as the cause of abnormal reaction of the patient, or of later complication, without mention of misadventure at the time of the procedure
CPT/HCPCS: 80202; 82565; 96365; 96366; 96367; J0696; J3370; J7050

== ENCOUNTER 2020-11-14 00:16 | Day surgery (SDC) | payer MEDICARE, OTHER | END 2020-11-14 17:16 | disposition home or self-care (01) | LOC: ATC 00:16 | DX: T84.84XA Pain due to internal orthopedic prosthetic devices, implants and grafts, initial encounter (principal); T84.89XA Other specified complication of internal orthopedic prosthetic devices, implants and grafts, initial encounter; E78.00 Pure hypercholesterolemia, unspecified; G43.909 Migraine, unspecified, not intractable, without status migrainosus; Z79.2 Long term (current) use of antibiotics; Z79.1 Long term (current) use of non-steroidal anti-inflammatories (NSAID); Z79.899 Other long term (current) drug therapy; Z96.642 Presence of left artificial hip joint; Z96.651 Presence of right artificial knee joint; Y83.1 Surgical operation with implant of artificial internal device as the cause of abnormal reaction of the patient, or of later complication, without mention of misadventure at the time of the procedure | CPT/HCPCS: 96365; 96366; 96367; J0696; J3370; J7050 ==

== ENCOUNTER 2020-11-15 00:14 | Day surgery (SDC) | payer MEDICARE, OTHER | END 2020-11-15 15:57 | disposition home or self-care (01) | LOC: ATC 00:14 | DX: M16.12 Unilateral primary osteoarthritis, left hip (principal); Z79.2 Long term (current) use of antibiotics; Z79.82 Long term (current) use of aspirin; Z79.899 Other long term (current) drug therapy | CPT/HCPCS: 96365; 96366; 96367; J0696; J3370; J7050 ==

== ENCOUNTER 2020-11-16 00:33 | Day surgery (SDC) | payer MEDICARE, OTHER ==
[2020-11-16 14:22] LABS: Creatinine, Blood 0.71 mg/dL (0.40-1.00)
== END 2020-11-16 16:00 | disposition home or self-care (01) ==
LOC: ATC 00:33
PROVIDERS: Orthopaedic Surgery
DX: T84.84XA Pain due to internal orthopedic prosthetic devices, implants and grafts, initial encounter (principal); T84.89XA Other specified complication of internal orthopedic prosthetic devices, implants and grafts, initial encounter; E78.00 Pure hypercholesterolemia, unspecified; G43.909 Migraine, unspecified, not intractable, without status migrainosus; Z79.2 Long term (current) use of antibiotics; Z79.82 Long term (current) use of aspirin; Z79.1 Long term (current) use of non-steroidal anti-inflammatories (NSAID); Z79.899 Other long term (current) drug therapy; Z96.642 Presence of left artificial hip joint; Z96.651 Presence of right artificial knee joint; Y83.1 Surgical operation with implant of artificial internal device as the cause of abnormal reaction of the patient, or of later complication, without mention of misadventure at the time of the procedure
CPT/HCPCS: 80202; 82565; 96365; 96367; J0696; J3370; J7050

== ENCOUNTER 2020-11-17 01:27 | Day surgery (SDC) | payer MEDICARE, OTHER | END 2020-11-17 15:36 | LOC: ATC 01:27 | DX: T84.84XA Pain due to internal orthopedic prosthetic devices, implants and grafts, initial encounter (principal); T84.89XA Other specified complication of internal orthopedic prosthetic devices, implants and grafts, initial encounter; E78.00 Pure hypercholesterolemia, unspecified; G43.909 Migraine, unspecified, not intractable, without status migrainosus; Z79.2 Long term (current) use of antibiotics; Z79.82 Long term (current) use of aspirin; Z79.1 Long term (current) use of non-steroidal anti-inflammatories (NSAID); Z79.899 Other long term (current) drug therapy; Z96.642 Presence of left artificial hip joint; Z96.651 Presence of right artificial knee joint; Y83.1 Surgical operation with implant of artificial internal device as the cause of abnormal reaction of the patient, or of later complication, without mention of misadventure at the time of the procedure | CPT/HCPCS: 96365; 96366; 96367; J0696; J3370; J7050 ==

== ENCOUNTER 2020-11-18 00:25 | Day surgery (SDC) | payer MEDICARE, OTHER ==
[2020-11-19] MEDS ORDERED: CIPR750 PO (13:40)
== END 2020-11-18 15:37 | disposition home or self-care (01) ==
LOC: ATC 00:25
DX: M16.12 Unilateral primary osteoarthritis, left hip (principal); E78.00 Pure hypercholesterolemia, unspecified; R00.0 Tachycardia, unspecified; Z96.651 Presence of right artificial knee joint; Z96.642 Presence of left artificial hip joint
CPT/HCPCS: 96365; 96366; J0696; J3370; J7050

== ENCOUNTER 2020-11-19 01:21 | Day surgery (SDC) | payer MEDICARE, OTHER ==
[2020-11-19] MEDS ORDERED: CIPR750 PO (13:40)
[2020-11-19 13:54] LABS: Creatinine, Blood 0.85 mg/dL (0.40-1.00); Vancomycin, Trough 9.2 ug/mL (5.0-10.0)
== END 2020-11-19 15:52 | disposition home or self-care (01) ==
LOC: ATC 01:21
PROVIDERS: Orthopaedic Surgery
DX: T81.89XA Other complications of procedures, not elsewhere classified, initial encounter (principal); L53.8 Other specified erythematous conditions; E78.00 Pure hypercholesterolemia, unspecified; Z96.642 Presence of left artificial hip joint
CPT/HCPCS: 80202; 82565; 96365; 96366; J3370; J7050

== ENCOUNTER 2020-11-20 00:20 | Day surgery (SDC) | payer MEDICARE, OTHER ==
[~2020-11-20 00:20] MED LIST changes: +CIPR750 PO
== END 2020-11-20 15:47 | disposition home or self-care (01) ==
LOC: ATC 00:20
DX: T84.84XA Pain due to internal orthopedic prosthetic devices, implants and grafts, initial encounter (principal); T84.89XA Other specified complication of internal orthopedic prosthetic devices, implants and grafts, initial encounter; Y83.8 Other surgical procedures as the cause of abnormal reaction of the patient, or of later complication, without mention of misadventure at the time of the procedure; Z96.642 Presence of left artificial hip joint; Z96.651 Presence of right artificial knee joint
CPT/HCPCS: 96365; 96366; J0696; J3370; J7050

== ENCOUNTER 2020-11-21 00:15 | Day surgery (SDC) | payer MEDICARE, OTHER | END 2020-11-21 17:07 | disposition home or self-care (01) | LOC: ATC 00:15 | DX: L76.82 Other postprocedural complications of skin and subcutaneous tissue (principal); T84.84XD Pain due to internal orthopedic prosthetic devices, implants and grafts, subsequent encounter; E78.00 Pure hypercholesterolemia, unspecified; G43.909 Migraine, unspecified, not intractable, without status migrainosus; Z66 Do not resuscitate | CPT/HCPCS: 96365; 96366; J3370; J7050 ==

== ENCOUNTER 2020-11-22 00:17 | Day surgery (SDC) | payer MEDICARE, OTHER ==
[2020-11-22 14:10] LABS: Creatinine, Blood 0.69 mg/dL (0.40-1.00)
== END 2020-11-22 16:40 | disposition home or self-care (01) ==
LOC: ATC 00:17
PROVIDERS: Orthopaedic Surgery
DX: M16.12 Unilateral primary osteoarthritis, left hip (principal); Z79.899 Other long term (current) drug therapy
CPT/HCPCS: 80202; 82565; 96365; 96366; J3370; J7050

== ENCOUNTER 2020-11-24 00:15 | Day surgery (SDC) | payer MEDICARE, OTHER | END 2020-11-24 15:25 | disposition home or self-care (01) | LOC: ATC 00:15 | DX: Z47.1 Aftercare following joint replacement surgery (principal); M16.12 Unilateral primary osteoarthritis, left hip; E78.00 Pure hypercholesterolemia, unspecified; Z96.642 Presence of left artificial hip joint; Z96.651 Presence of right artificial knee joint | CPT/HCPCS: 96365; 96366; J3370; J7050 ==

== ENCOUNTER 2020-11-25 00:14 | Day surgery (SDC) | payer MEDICARE, OTHER ==
[2020-11-26] MEDS ORDERED: Vancomycin1 GM/2501 IV (14:09)
== END 2020-11-25 15:45 | disposition home or self-care (01) ==
LOC: ATC 00:14
DX: L76.82 Other postprocedural complications of skin and subcutaneous tissue (principal); L53.8 Other specified erythematous conditions; M25.552 Pain in left hip; E78.00 Pure hypercholesterolemia, unspecified; Z85.828 Personal history of other malignant neoplasm of skin; Y83.8 Other surgical procedures as the cause of abnormal reaction of the patient, or of later complication, without mention of misadventure at the time of the procedure; Z96.642 Presence of left artificial hip joint; Z79.899 Other long term (current) drug therapy
CPT/HCPCS: 96365; 96366; J3370; J7050

== ENCOUNTER 2020-11-26 03:44 | Day surgery (SDC) | payer MEDICARE, OTHER ==
[2020-11-26] MEDS ORDERED: Vancomycin1 GM/2501 IV (14:09)
[2020-11-26 14:10] LABS: Creatinine, Blood 0.68 mg/dL (0.40-1.00); Vancomycin, Trough 9.4 ug/mL (5.0-10.0)
== END 2020-11-26 15:47 | disposition home or self-care (01) ==
LOC: ATC 03:44
PROVIDERS: Orthopaedic Surgery
DX: Z47.1 Aftercare following joint replacement surgery (principal); Z96.642 Presence of left artificial hip joint; Z96.651 Presence of right artificial knee joint; E78.00 Pure hypercholesterolemia, unspecified; M16.12 Unilateral primary osteoarthritis, left hip
CPT/HCPCS: 80202; 82565; 96365; J3370; J7050

== ENCOUNTER 2020-11-27 02:23 | Day surgery (SDC) | payer MEDICARE, OTHER ==
[~2020-11-27 02:23] MED LIST changes: +Vancomycin1 GM/2501 IV
== END 2020-11-27 15:32 | disposition home or self-care (01) ==
LOC: ATC 02:23
DX: Z47.1 Aftercare following joint replacement surgery (principal); Z96.642 Presence of left artificial hip joint; Z96.651 Presence of right artificial knee joint; E78.00 Pure hypercholesterolemia, unspecified
CPT/HCPCS: 96365; 96366; J3370; J7050

== ENCOUNTER 2020-11-28 00:28 | Day surgery (SDC) | payer MEDICARE, OTHER | END 2020-11-28 16:50 | disposition home or self-care (01) | LOC: ATC 00:28 | DX: M96.89 Other intraoperative and postprocedural complications and disorders of the musculoskeletal system (principal); L53.9 Erythematous condition, unspecified; T84.84XA Pain due to internal orthopedic prosthetic devices, implants and grafts, initial encounter; Z96.642 Presence of left artificial hip joint; E78.00 Pure hypercholesterolemia, unspecified; Z85.828 Personal history of other malignant neoplasm of skin; Z96.651 Presence of right artificial knee joint; Z98.49 Cataract extraction status, unspecified eye; Z95.828 Presence of other vascular implants and grafts | CPT/HCPCS: 96365; 96366; J3370; J7050 ==

== ENCOUNTER 2020-11-29 00:06 | Day surgery (SDC) | payer MEDICARE, OTHER ==
[2020-11-29 14:09] LABS: Creatinine, Blood 0.75 mg/dL (0.40-1.00); Vancomycin, Trough 11.4 ug/mL (5.0-10.0)
== END 2020-11-29 15:25 | disposition home or self-care (01) ==
LOC: ATC 00:06
PROVIDERS: Orthopaedic Surgery
DX: Z47.1 Aftercare following joint replacement surgery (principal); E78.00 Pure hypercholesterolemia, unspecified; Z96.642 Presence of left artificial hip joint; Z96.651 Presence of right artificial knee joint
CPT/HCPCS: 80202; 82565; 96365; 96366; J3370; J7050

== ENCOUNTER 2020-11-30 00:09 | Day surgery (SDC) | payer MEDICARE, OTHER | END 2020-11-30 15:28 | disposition home or self-care (01) | LOC: ATC 00:09 | DX: M96.89 Other intraoperative and postprocedural complications and disorders of the musculoskeletal system (principal); L53.9 Erythematous condition, unspecified; T84.84XA Pain due to internal orthopedic prosthetic devices, implants and grafts, initial encounter; E78.00 Pure hypercholesterolemia, unspecified; Z96.642 Presence of left artificial hip joint; Z85.828 Personal history of other malignant neoplasm of skin; Z96.651 Presence of right artificial knee joint; Z98.49 Cataract extraction status, unspecified eye; Z95.828 Presence of other vascular implants and grafts; Z79.2 Long term (current) use of antibiotics | CPT/HCPCS: 36415; 85025; 85651; 86140; 96365; 96366; J3370; J7050 ==

== ENCOUNTER 2020-12-01 00:09 | Day surgery (SDC) | payer MEDICARE, OTHER | END 2020-12-01 15:27 | disposition home or self-care (01) | LOC: ATC 00:09 | DX: M96.89 Other intraoperative and postprocedural complications and disorders of the musculoskeletal system (principal); L53.9 Erythematous condition, unspecified; T84.84XA Pain due to internal orthopedic prosthetic devices, implants and grafts, initial encounter; E78.00 Pure hypercholesterolemia, unspecified; Z96.642 Presence of left artificial hip joint; Z85.828 Personal history of other malignant neoplasm of skin; Z96.651 Presence of right artificial knee joint; Z98.49 Cataract extraction status, unspecified eye; Z95.828 Presence of other vascular implants and grafts; Z79.2 Long term (current) use of antibiotics | CPT/HCPCS: 96365; 96366; J3370; J7050 ==

== ENCOUNTER 2020-12-02 01:48 | Day surgery (SDC) | payer MEDICARE, OTHER ==
[2020-12-02 14:02] LABS: Creatinine, Blood 0.76 mg/dL (0.40-1.00)
== END 2020-12-02 15:22 | disposition home or self-care (01) ==
LOC: ATC 01:48
PROVIDERS: Orthopaedic Surgery
DX: L76.82 Other postprocedural complications of skin and subcutaneous tissue (principal); L53.9 Erythematous condition, unspecified; E78.00 Pure hypercholesterolemia, unspecified; Y83.8 Other surgical procedures as the cause of abnormal reaction of the patient, or of later complication, without mention of misadventure at the time of the procedure; Z96.642 Presence of left artificial hip joint; Z85.828 Personal history of other malignant neoplasm of skin; Z96.651 Presence of right artificial knee joint
CPT/HCPCS: 80202; 82565; 96365; 96366; J3370; J7050

== ENCOUNTER 2020-12-03 01:37 | Day surgery (SDC) | payer MEDICARE, OTHER | END 2020-12-03 15:34 | disposition home or self-care (01) | LOC: ATC 01:37 | DX: L76.82 Other postprocedural complications of skin and subcutaneous tissue (principal); L53.8 Other specified erythematous conditions; E78.00 Pure hypercholesterolemia, unspecified; Y83.8 Other surgical procedures as the cause of abnormal reaction of the patient, or of later complication, without mention of misadventure at the time of the procedure; Z85.828 Personal history of other malignant neoplasm of skin; Z96.642 Presence of left artificial hip joint; Z96.651 Presence of right artificial knee joint | CPT/HCPCS: 96365; 96366; J3370; J7050 ==

== ENCOUNTER 2020-12-04 01:26 | Day surgery (SDC) | payer MEDICARE, OTHER | END 2020-12-04 15:31 | disposition home or self-care (01) | LOC: ATC 01:26 | DX: T84.84XA Pain due to internal orthopedic prosthetic devices, implants and grafts, initial encounter (principal); T84.89XA Other specified complication of internal orthopedic prosthetic devices, implants and grafts, initial encounter; L53.9 Erythematous condition, unspecified; E78.00 Pure hypercholesterolemia, unspecified; Y83.8 Other surgical procedures as the cause of abnormal reaction of the patient, or of later complication, without mention of misadventure at the time of the procedure; Z85.828 Personal history of other malignant neoplasm of skin; Z96.642 Presence of left artificial hip joint; Z96.651 Presence of right artificial knee joint | CPT/HCPCS: 96365; 96366; J3370; J7050 ==

== ENCOUNTER 2020-12-05 00:29 | Day surgery (SDC) | payer MEDICARE, OTHER ==
[2020-12-05 15:46] LABS: Creatinine, Blood 0.79 mg/dL (0.40-1.00)
== END 2020-12-05 17:00 | disposition home or self-care (01) ==
LOC: ATC 00:29
PROVIDERS: Orthopaedic Surgery
DX: L76.82 Other postprocedural complications of skin and subcutaneous tissue (principal); L53.9 Erythematous condition, unspecified; E78.00 Pure hypercholesterolemia, unspecified; Y83.8 Other surgical procedures as the cause of abnormal reaction of the patient, or of later complication, without mention of misadventure at the time of the procedure; Z85.828 Personal history of other malignant neoplasm of skin; Z96.642 Presence of left artificial hip joint; Z96.651 Presence of right artificial knee joint; Z95.828 Presence of other vascular implants and grafts; Z79.2 Long term (current) use of antibiotics
CPT/HCPCS: 80202; 82565; 96365; 96366; J3370; J7050

== ENCOUNTER 2020-12-06 00:33 | Day surgery (SDC) | payer MEDICARE, OTHER | END 2020-12-06 15:25 | disposition home or self-care (01) | LOC: ATC 00:33 | DX: T84.84XA Pain due to internal orthopedic prosthetic devices, implants and grafts, initial encounter (principal); T84.89XA Other specified complication of internal orthopedic prosthetic devices, implants and grafts, initial encounter; Y83.8 Other surgical procedures as the cause of abnormal reaction of the patient, or of later complication, without mention of misadventure at the time of the procedure; Z96.642 Presence of left artificial hip joint; Z96.651 Presence of right artificial knee joint; Z79.2 Long term (current) use of antibiotics | CPT/HCPCS: 96365; 96366; J3370; J7050 ==

== ENCOUNTER 2020-12-07 00:07 | Day surgery (SDC) | payer MEDICARE, OTHER | END 2020-12-07 15:23 | disposition home or self-care (01) | LOC: ATC 00:07 | DX: T84.84XA Pain due to internal orthopedic prosthetic devices, implants and grafts, initial encounter (principal); T84.89XA Other specified complication of internal orthopedic prosthetic devices, implants and grafts, initial encounter; L53.9 Erythematous condition, unspecified; E78.00 Pure hypercholesterolemia, unspecified; Z85.828 Personal history of other malignant neoplasm of skin; Z96.651 Presence of right artificial knee joint; Z96.642 Presence of left artificial hip joint; Z79.2 Long term (current) use of antibiotics; Y83.8 Other surgical procedures as the cause of abnormal reaction of the patient, or of later complication, without mention of misadventure at the time of the procedure | CPT/HCPCS: 96365; 96366; J3370; J7050 ==

== ENCOUNTER 2020-12-08 00:16 | Day surgery (SDC) | payer MEDICARE, OTHER | END 2020-12-08 15:24 | disposition home or self-care (01) | LOC: ATC 00:16 | DX: T84.89XD Other specified complication of internal orthopedic prosthetic devices, implants and grafts, subsequent encounter (principal); T84.84XD Pain due to internal orthopedic prosthetic devices, implants and grafts, subsequent encounter; Y79.2 Prosthetic and other implants, materials and accessory orthopedic devices associated with adverse incidents; E78.00 Pure hypercholesterolemia, unspecified; Z96.642 Presence of left artificial hip joint; Z96.651 Presence of right artificial knee joint; Z85.828 Personal history of other malignant neoplasm of skin | CPT/HCPCS: 96365; 96366; J3370; J7050 ==

== ENCOUNTER 2020-12-09 01:58 | Day surgery (SDC) | payer MEDICARE, OTHER | END 2020-12-09 15:33 | disposition home or self-care (01) | LOC: ATC 01:58 | DX: T84.89XD Other specified complication of internal orthopedic prosthetic devices, implants and grafts, subsequent encounter (principal); T84.84XD Pain due to internal orthopedic prosthetic devices, implants and grafts, subsequent encounter; Y79.2 Prosthetic and other implants, materials and accessory orthopedic devices associated with adverse incidents; E78.00 Pure hypercholesterolemia, unspecified; Z96.642 Presence of left artificial hip joint; Z85.828 Personal history of other malignant neoplasm of skin; Z96.651 Presence of right artificial knee joint | CPT/HCPCS: 96365; 96366; J3370; J7050 ==

== ENCOUNTER 2020-12-10 00:18 | Day surgery (SDC) | payer MEDICARE, OTHER ==
[2020-12-10 14:40] LABS: Vancomycin, Trough 14.3 ug/mL (5.0-10.0)
== END 2020-12-10 15:40 | disposition home or self-care (01) ==
LOC: ATC 00:18
PROVIDERS: Orthopaedic Surgery
DX: T84.84XA Pain due to internal orthopedic prosthetic devices, implants and grafts, initial encounter (principal); T84.89XA Other specified complication of internal orthopedic prosthetic devices, implants and grafts, initial encounter; L53.9 Erythematous condition, unspecified; Y79.8 Miscellaneous orthopedic devices associated with adverse incidents, not elsewhere classified
CPT/HCPCS: 80202; 82565; 96365; 96366; J3370; J7050

== ENCOUNTER 2020-12-11 00:16 | Day surgery (SDC) | payer MEDICARE, OTHER | END 2020-12-11 13:20 | disposition home or self-care (01) | LOC: ATC 00:16 | DX: T84.89XD Other specified complication of internal orthopedic prosthetic devices, implants and grafts, subsequent encounter (principal); T84.84XD Pain due to internal orthopedic prosthetic devices, implants and grafts, subsequent encounter; L53.9 Erythematous condition, unspecified; Y79.2 Prosthetic and other implants, materials and accessory orthopedic devices associated with adverse incidents; E78.00 Pure hypercholesterolemia, unspecified; Z96.642 Presence of left artificial hip joint; Z96.651 Presence of right artificial knee joint; Z85.828 Personal history of other malignant neoplasm of skin; Z79.2 Long term (current) use of antibiotics | CPT/HCPCS: 96365; 96366; J3370; J7050 ==

== ENCOUNTER 2020-12-12 00:24 | Day surgery (SDC) | payer MEDICARE, OTHER | END 2020-12-12 16:58 | disposition home or self-care (01) | LOC: ATC 00:24 | DX: T84.89XA Other specified complication of internal orthopedic prosthetic devices, implants and grafts, initial encounter (principal); T84.84XA Pain due to internal orthopedic prosthetic devices, implants and grafts, initial encounter; L53.8 Other specified erythematous conditions; E78.00 Pure hypercholesterolemia, unspecified; G43.909 Migraine, unspecified, not intractable, without status migrainosus; C44.90 Unspecified malignant neoplasm of skin, unspecified | CPT/HCPCS: 96365; 96366; J3370; J7050 ==

== ENCOUNTER 2020-12-13 01:05 | Day surgery (SDC) | payer MEDICARE, OTHER | END 2020-12-13 15:34 | disposition home or self-care (01) | LOC: ATC 01:05 | DX: T84.89XA Other specified complication of internal orthopedic prosthetic devices, implants and grafts, initial encounter (principal); L54 Erythema in diseases classified elsewhere; T84.84XA Pain due to internal orthopedic prosthetic devices, implants and grafts, initial encounter; E78.00 Pure hypercholesterolemia, unspecified; Z96.642 Presence of left artificial hip joint; Y79.2 Prosthetic and other implants, materials and accessory orthopedic devices associated with adverse incidents; Z85.828 Personal history of other malignant neoplasm of skin; Z96.651 Presence of right artificial knee joint | CPT/HCPCS: 96365; 96366; J3370; J7050 ==

== ENCOUNTER 2020-12-14 00:18 | Day surgery (SDC) | payer MEDICARE, OTHER | END 2020-12-14 15:22 | disposition home or self-care (01) | LOC: ATC 00:18 | DX: T84.84XA Pain due to internal orthopedic prosthetic devices, implants and grafts, initial encounter (principal); T84.89XA Other specified complication of internal orthopedic prosthetic devices, implants and grafts, initial encounter; Y83.8 Other surgical procedures as the cause of abnormal reaction of the patient, or of later complication, without mention of misadventure at the time of the procedure; Z96.642 Presence of left artificial hip joint; Z96.651 Presence of right artificial knee joint | CPT/HCPCS: 96365; 96366; J3370; J7050 ==

== ENCOUNTER 2020-12-15 00:11 | Day surgery (SDC) | payer MEDICARE, OTHER | END 2020-12-15 15:23 | disposition home or self-care (01) | LOC: ATC 00:11 | DX: T84.89XA Other specified complication of internal orthopedic prosthetic devices, implants and grafts, initial encounter (principal); L54 Erythema in diseases classified elsewhere; T84.84XA Pain due to internal orthopedic prosthetic devices, implants and grafts, initial encounter; E78.00 Pure hypercholesterolemia, unspecified; Z96.642 Presence of left artificial hip joint; Y79.2 Prosthetic and other implants, materials and accessory orthopedic devices associated with adverse incidents; Z85.828 Personal history of other malignant neoplasm of skin; Z96.651 Presence of right artificial knee joint | CPT/HCPCS: 96365; 96366; J3370; J7050 ==

== ENCOUNTER 2020-12-16 00:56 | Day surgery (SDC) | payer MEDICARE, OTHER | END 2020-12-16 16:03 | disposition home or self-care (01) | LOC: ATC 00:56 | DX: L97.312 Non-pressure chronic ulcer of right ankle with fat layer exposed (principal); I70.203 Unspecified atherosclerosis of native arteries of extremities, bilateral legs; I87.2 Venous insufficiency (chronic) (peripheral); J44.9 Chronic obstructive pulmonary disease, unspecified; Z99.81 Dependence on supplemental oxygen | CPT/HCPCS: 96365; 96366; J3370; J7050 ==

== ENCOUNTER 2020-12-17 01:21 | Day surgery (SDC) | payer MEDICARE, OTHER | END 2020-12-17 15:52 | disposition home or self-care (01) | LOC: ATC 01:21 | DX: T84.89XA Other specified complication of internal orthopedic prosthetic devices, implants and grafts, initial encounter (principal); L54 Erythema in diseases classified elsewhere; T84.84XA Pain due to internal orthopedic prosthetic devices, implants and grafts, initial encounter; E78.00 Pure hypercholesterolemia, unspecified; Y83.8 Other surgical procedures as the cause of abnormal reaction of the patient, or of later complication, without mention of misadventure at the time of the procedure; Z96.642 Presence of left artificial hip joint; Z96.651 Presence of right artificial knee joint; Z85.828 Personal history of other malignant neoplasm of skin | CPT/HCPCS: 96365; 96366; J3370; J7050 ==

== ENCOUNTER 2020-12-18 00:38 | Day surgery (SDC) | payer MEDICARE, OTHER | END 2020-12-18 15:42 | disposition home or self-care (01) | LOC: ATC 00:38 | DX: T84.84XA Pain due to internal orthopedic prosthetic devices, implants and grafts, initial encounter (principal); T84.89XA Other specified complication of internal orthopedic prosthetic devices, implants and grafts, initial encounter; L53.8 Other specified erythematous conditions; E78.00 Pure hypercholesterolemia, unspecified; Y83.8 Other surgical procedures as the cause of abnormal reaction of the patient, or of later complication, without mention of misadventure at the time of the procedure; Z85.828 Personal history of other malignant neoplasm of skin; Z96.651 Presence of right artificial knee joint; Z96.642 Presence of left artificial hip joint | CPT/HCPCS: 96365; 96366; J3370; J7050 ==

== ENCOUNTER → 2021-09-14 | Outpatient (CLI) | payer MEDICARE, OTHER ==
[2021-09-14 13:51] LABS: Hemoglobin 11.8 g/dL (11.5-16.0); Mean Corpuscular HGB 31.5 pg (26.0-34.0); Mean Corpuscular HGB Conc 34.7 g/dL (31.5-36.5); Mean Corpuscular Volume 91 fL (80-100); Mean Platelet Volume 11.5 fL (9.1-12.4); Platelet Count 128 K/mm3 (150-400); RDW Coefficient Variation 14.4 % (11.7-14.2); RDW Standard Deviation 48.1 fL (35.1-46.3); Red Blood Cell Count 3.75 M/mm3 (3.80-5.20); White Blood Cell Count 16.85 K/mm3 (4.00-11.30)
[2021-09-14 14:15] LABS: BASOPHILS ABSOLUTE MAN 0.16 K/mm3 (0.00-0.23); BASOPHILS PERCENT MAN 1 % (0-2); EOSINOPHILS ABSOLUTE MAN 0.33 K/mm3 (0.00-0.68); EOSINOPHILS PERCENT MAN 2 % (0-6); LYMPHOCYTES % ATYPICAL MANUAL 1 % (0-0); LYMPHOCYTES PERCENT MAN 75 % (21-46); MONOCYTES ABSOLUTE MAN 0.16 K/mm3 (0.16-1.47); MONOCYTES PERCENT MAN 1 % (4-13); NEUTROPHILS ABSOLUTE MAN 3.37 K/mm3 (1.96-9.15); SEG NEUTROPHILS PERCENT MAN 20 % (41-73); TOTAL CELLS COUNTED 100
== END | disposition home or self-care (01) ==
LOC: LAB SHORT 12:15
PROVIDERS: Internal Medicine Hematology & Oncology
DX: D69.3 Immune thrombocytopenic purpura (principal)
CPT/HCPCS: 85025

== ENCOUNTER 2022-01-19 19:04 | Day surgery (SDC) | payer MEDICARE, OTHER ==
[2022-01-23 13:04] LABS: Performing Lab SYMBIODX; Test Name TISSUE BIOPSY
== END 2022-01-23 22:59 | disposition home or self-care (01) ==
LOC: MOI MAM 19:04
PROVIDERS: Pathology Clinical Pathology/Laboratory Medicine
DX: C83.04 Small cell B-cell lymphoma, lymph nodes of axilla and upper limb (principal); R59.0 Localized enlarged lymph nodes; Z85.6 Personal history of leukemia
CPT/HCPCS: 38505; 76942; 88305; 88341; 88342